=== PATIENT | male | born 1985 | race Caucasian/White ===

== ENCOUNTER 2021-11-22 11:42 | Day surgery (SDC) | payer OTHER, SELFPAY ==
[2021-11-22] VITALS (7 sets, daily range): BP systolic 72–104; BP diastolic 38–69; PULSE 41–51; RESP 16; TEMP 35.8–36.2; O2SAT 98–100; BMI 22.5
[2021-11-22] MEDS: Lactated Ringers 1,000 ML 15 ML IV (12:26)
--- NOTE | 2021-11-22 12:42 | HP.PCM_ITS ---
History and Physical Date of Admission: 11/22/21 XENA GUERRA, is a 35 M new pt who presents to the office today for change in bowels. Changes began about 6 mos ago. Stools can be pebble-like which is new. Doesn't feel constipated but notes his stool gets backed up, can then have a large BM about once a week. Has BM 1-2x per day typically, stools often smaller than normal. But some days no BM, which isn't normal for him. Has had some pains in the abd, nothing in past couple of months. No diarrhea. Passed some clear jelly-like substance with stool a few times. No hematochezia or melena. No change in diet. Appetite is good. Weight has decreased over past 6-8 mos, about 10 lbs, he has been trying to eat healthier. No meds tried for bowels, since he doesn't feel constipated he hasn't felt the need to treat. Only very rare heartburn. No dysphagia. No nausea or vomiting. No bloating or extra gas. Physically active at work at [employer]. No past medical or surgical history. No meds or allergies. No FH of IBD, GI cancers ROS Const Constitutional: Positive for fatigue; No fever(s), headache(s), weight change, sleep problems, abnormal sleep pattern or change in appetite ENT ENT: Positive for nasal congestion; No headache(s), difficulty swallowing, hoarseness or sore throat Resp Respiratory: No cough, hemoptysis or shortness of breath Cardio Cardiology: No chest pain at rest or generalized swelling Gastro GI: Positive for change in bowel habits; No abdominal pain, belching, bloating, change in stool character, coffee ground emesis, constipation, cramping, diarrhea, heartburn, difficulty swallowing, feeling full early, excessive flatus, incontinent of stools, Vomiting blood/hematemesis, Blood in stool, loose stools, Black,tarry stools, nausea/dyspepsia, pain with swallowing or vomiting Musc Musculoskeletal: No joint pain, back pain, joint swelling, numbness or tingling Skin Skin: No itchy eyes or rash Neuro Neurology: No behavioral changes, confusion, headache(s), numbness or tingling Psych Psychiatric: No abnormal sleep pattern, No anxiety, No behavioral changes, No change in appetite, No confusion and No depression Endo Endocrine: Positive for fatigue; No cold intolerance, heat intolerance, increased thirst/drinking or weight change Aller/Imm Allergy/Immunologic: No food intolerance or itchy eyes Larry/Lymp Hematologic/Lymphatic: No easy bleeding, easy bruising or enlarged lymph nodes Exam Const General: cooperative, healthy appearing, comfortable, no acute distress, well developed and well groomed Nutritional Appearance: average body habitus Chest Chest palpation & inspection: normal inspection of the chest Resp Effort & Inspection: normal respiratory effort Cardio Rate: regular rate Rhythm: regular rhythm GI Inspection: normal to inspection Auscultation: normal bowel sounds Palpation: soft, no hepatosplenomegaly and nontender Extrem General: no pedal edema Assessment and Plan Assessment and Plan (1) Change in stool habits: Status: Acute (2) Change in stool caliber: Status: Acute Plan: 35 yr old male with change in stool pattern, caliber. Discussed w/u. Plan is for colonoscopy. Can do further w/u if needed following that. Case discussed with Dr Kerr. I have re-examined the patient. There are no clinical changes since date of exam.
--- NOTE | 2021-11-22 12:45 | COLBX_PTH ---
PATIENT: XENA GUERRA LOC: EN U#:[id number] AGE/SX: 35/M ROOM: RE11/22/[address]: Dr. Cory Kerr DO : 1985 BED: DIS: 11/22/2021 SPEC #: [id number] RECD: 11/22/21 16:21 STATUS: SUPRIYA CHRISTO #: [id number] DESIRAE: 11/22/21 12:[address]: Cory Kerr DEPT: SURGICAL PATHOLOGY RECD BY: Estrada Oswald ENTERED: 11/23/21 09:43 SP TYPE: COLON BX OTHR DR: Dr. Elroy Norton MD Tissues: A - Ileum, NOS B - Cecum, NOS Procedures: Surgery Specimen Level IV HEADER OPERATION: Colonoscopy (VILMA), biopsy PRE-OP DIAGNOSIS: Change in stool habits, change in stool caliber TISSUE SUBMITTED: A ? Terminal ileum biopsy, B ? Cecum biopsy MICROSCOPIC DIAGNOSIS A. Terminal ileum, biopsy: Benign lymphoid aggregates. B. Cecum, biopsy: Mild melanosis coli. AM:franko 11/24/2021 MICROSCOPIC DESCRIPTION Slides are reviewed. GROSS DESCRIPTION A - Received in fixative is one container labeled with the patient's name and designated terminal ileum biopsy. The specimen consists of one irregular fragment of light [place] soft tissue that measures 0.5 x 0.3 x 0.1 cm. The specimen is totally submitted in one cassette. B - Received in fixative is one container labeled with the patient's name and designated cecum biopsy. The specimen consists of two irregular fragments of light [place] soft tissue that in aggregate measure 0.5 x 0.4 x 0.1 cm. The specimen is totally submitted in one cassette. / SJ:franko 11/23/2021 TC:5 [facility]: [id number] x2
--- NOTE | 2021-11-22 13:19 | OP.COLON_ITS ---
Patient Name: Amrik Mcintyre Procedure Date: 11/22/2021 12:40 PM Date of : 1985 Age: 35 Procedure: Colonoscopy Indications: Clinically significant diarrhea of unexplained origin, Incidental abdominal pain noted, Incidental change in bowel habits noted Providers: Cory Kerr DO Medicines: Monitored Anesthesia Care Patient Profile: This is a 35 year old male. Refer to note in patient chart for documentation of history and physical. Last Colonoscopy: none. The patient's first colonoscopy is today. Complications: No immediate complications. Procedure: Pre-Anesthesia Assessment: - Prior to the procedure, a History and Physical was performed, and patient medications and allergies were reviewed. The risks and benefits of the procedure and the sedation options and risks were discussed with the patient. All questions were answered and informed consent was obtained. Patient identification and proposed procedure were verified by the physician in the pre-procedure area. Mental Status Examination: alert and oriented. Airway Examination: normal oropharyngeal airway and neck mobility. Respiratory Examination: clear to auscultation. CV Examination: normal. Prophylactic Antibiotics: The patient does not require prophylactic antibiotics. Prior Anticoagulants: The patient has taken no previous anticoagulant or antiplatelet agents. ASA Grade Assessment: II - A patient with mild systemic disease. After reviewing the risks and benefits, the patient was deemed in satisfactory condition to undergo the procedure. The anesthesia plan was to use moderate sedation / analgesia (conscious sedation). Immediately prior to administration of medications, the patient was re-assessed for adequacy to receive sedatives. The heart rate, respiratory rate, oxygen saturations, blood pressure, adequacy of pulmonary ventilation, and response to care were monitored throughout the procedure. The physical status of the patient was re-assessed after the procedure. After I obtained informed consent, the scope was passed under direct vision. Throughout the procedure, the patient's blood pressure, pulse, and oxygen saturations were monitored continuously. The Colonoscope was introduced through the anus and advanced to the terminal ileum. The colonoscopy was performed without difficulty. The patient tolerated the procedure well. The quality of the bowel preparation was good. Scope In: 12:53:54 PM Scope Withdrawal Time 0 hours 11 minutes 37 seconds Scope Out: 1:10:51 PM Total Procedure Duration Time 0 hours 16 minutes 57 seconds Findings: The perianal and digital rectal examinations were normal. An area of mildly congested mucosa was found in the cecum. Biopsies were taken with a cold forceps for histology. Verification of patient identification for the specimen was done. Estimated blood loss was minimal. A patchy area of the terminal ileum was congested. Biopsies were taken with a cold forceps for histology. Verification of patient identification for the specimen was done. Estimated blood loss was minimal. Retroflexion in the rectum was not performed due to abnormal anatomy. Impression: - Congested mucosa in the cecum. Biopsied. - Congested mucosa in the terminal ileum. Biopsied. Recommendation: - Discharge patient to home. - Resume previous diet. - Continue present medications. - Await pathology results. - Repeat colonoscopy in 10 years for screening purposes. Procedure Code(s): --- Professional --- 71124, Colonoscopy, flexible; with biopsy, single or multiple CPT copyright 2017 [employer]. All rights reserved. The codes documented in this report are preliminary and upon computer system validation specialist review may be revised to meet current compliance requirements. Cory Kerr DO 11/22/2021 1:18:19 PM This report has been signed electronically. Number of Addenda: 1 Note Initiated On: 11/22/2021 12:40 PM Addendum Number: 1 Addendum Date: 04/14/2022 6:24:59 AM MAC was used as sedation for this procedure. Cory Kerr DO 04/14/2022 6:25:03 AM This report has been signed electronically.
== END 2021-11-22 14:04 | disposition home or self-care (01) ==
LOC: EN 11:44 → AC 11:50
PROVIDERS: PCP Internal Medicine; Referring Provider Internal Medicine Gastroenterology; Visit Provider Internal Medicine Gastroenterology
PROC: 0DJD8ZZ Inspection of Lower Intestinal Tract, Via Natural or Artificial Opening Endoscopic (ICD-10-PCS; CPT 45378; principal; 2021-11-22 12:40)
DX: K63.89 Other specified diseases of intestine (principal); R19.4 Change in bowel habit
CPT/HCPCS: 45380; 87426; 88305; J7120; J2405